=== PATIENT | female | born 1965 | race Caucasian/White ===

== ENCOUNTER → 2016-12-02 | Day surgery (SDC) | payer MEDICARE ==
[~2016-12-02] VITALS: Ht 162.6 cm; Wt 97.5 kg
[~2016-12-02] MED LIST: 0.9% Sodium Chloride 1,000 ML IV PRN; CHOL500011 PO; CITA20TA11 PO; GUAI400T57 PO; MULT1CAP33 PO; Sodium Chloride LOK Flush 10 mL Syringe IV PRN; [UNRECOGNIZED DRUG - CODE] PO; fentaNYL-PF 50 mCg/mL 2 mL Inj IVPUSH PRN
[2016-12-02 13:26] VITALS: BP 115/65; PULSE 68; RESP 16; O2SAT 100
[2016-12-02 15:03] VITALS: BP 95/59; PULSE 68; RESP 16; O2SAT 97
[2016-12-02 15:10] VITALS: BP 88/63; PULSE 75; RESP 16; O2SAT 97
--- NOTE | 2016-12-02 15:18 | ENDO ---
[address] [address] ENDOSCOPY PROCEDURE PATIENT: DOMONIQUE LOREDO : 1965 MR#: [id number] ADMIT: 12/02/2016 JOB ID: [id number] DATE OF SERVICE: 12/02/2016 TYPE OF OPERATION: Esophagogastroduodenoscopy, biopsy. Colonoscopy, biopsy. PREOPERATIVE DIAGNOSIS(ES): Gastroesophageal reflux disease, five positive stools and diarrhea. POSTOPERATIVE DIAGNOSIS(ES): 1. Mild nonerosive gastritis, status post biopsy. 2. Loss of architecture and vascularity and ulcerations seen from the sigmoid colon at 30 cm from the anus to the rectum, status post biopsy. ANESTHESIA: Fentanyl 175 mcg and Versed 9 mg IV administered. COMPLICATION: None. BLOOD LOSS: Minimal. DESCRIPTION OF PROCEDURE: After risks and benefits explained to the patient, informed consent was obtained. After anesthesia administered, an upper endoscope was then inserted into the mouth, intubated into the esophagus, stomach, second portion of duodenum. Mucosa carefully examined. After procedure was done, the scope withdrawn, procedure terminated. Colonoscope was then inserted from the rectum to the terminal ileum. Mucosa carefully examined. Prep of the patient was excellent. After the procedure was done, the scope withdrawn, procedure terminated. FINDINGS: Upon inspection of the esophagus, esophagus was normal without masses, ulcers, or lesions. Z-line located at 34 cm from incisors. Upon entering the stomach, stomach showed mild nonerosive gastritis. No masses, ulcers were seen. Retroflexion was normal. Duodenal bulb, first and second portion normal. Biopsies taken of the antrum, body, and distal esophagus. Upon inspection of the anus, no masses, hemorrhoids, ulcers, fissures that were seen throughout the entire examination. There was some loss of architecture and vascularity with ulcerations that were seen at 30 cm from the anus to the rectum, status post biopsy, suspicious for ulcerative colitis. On intubation terminal ileum appeared normal. This was also biopsied. Retroflexion was not performed. IMPRESSIONS: 1. Mild nonerosive gastritis. 2. Loss of architecture and vascularity with mild ulcerations seen from 30 cm from the anus to the rectum, status post biopsy. RECOMMENDATIONS: 1. Await pathology results. Follow up in GI clinic with Sorin Peñaloza PA-C. 2. Lialda 2.4 g by mouth. 3. Rosalie [place] q.h.s.
[2016-12-02 15:24] VITALS: BP 95/64; PULSE 80; RESP 14; O2SAT 99
[2016-12-02 15:39] VITALS: BP 103/65; PULSE 77; RESP 16; O2SAT 99
--- NOTE | 2016-12-05 12:01 | PATH ---
SURGICAL PATHOLOGY Attending Physician:Timi Virgen MD CASE STATUS: Signed Out PATIENT NAME: DOMONIQUE LOREDO PID: [id number] : 1965 DATE COLLECTED:12/02/2016 00:00 SPECIMEN: 1: Stomach, Antrum, Biopsy 2: Gastric, Biopsy 3: Esophagus, Biopsy 4: Colon, Biopsy 5: Ileum, Biopsy 6: Rectum, Biopsy CLINICAL HISTORY: 1). ANTRUM BIOPSY 2). GASTRIC BODY BIOPSY RULE OUT H PYLORI 3). DISTAL ESOPHAGUS BIOPSY 4). SIGMOID COLON BIOPSY 30 CM 5). TERMINAL ILEUM BIOPSY 6). RECTAL BIOPSY FINAL DIAGNOSIS: 1. Stomach, Antrum, Biopsy: Antral mucosa with mild chronic gastritis. Negative for Helicobacter by immunohistochemistry. Negative for intestinal metaplasia. Negative for dysplasia and malignancy. 2. Stomach, Body, Biopsy: Body-type mucosa with no diagnostic abnormality. Negative for Helicobacter by immunohistochemistry. Negative for intestinal metaplasia. Negative for dysplasia and malignancy. 3. Distal Esophagus, Biopsy: Squamous mucosa with reflux-related changes. Intraepithelial eosinophils are not increased. Negative for dysplasia or malignancy. 4, 6. Sigmoid Colon Biopsy, 30 cm, Rectal Biopsy: Mildly active colitis with cryptitis and focal erosion. See comment. Negative for granulomas, dysplasia and malignancy. 5. Terminal Ileum, Biopsy: Mildly active ileitis. See comment. Negative for granulomas, dysplasia and malignancy. ICD10: R10.9 GROSS DESCRIPTION: The specimen is received in six formalin filled containers labeled with the patient's name. 1). The specimen is labeled "antrum" and consists of a 0.3 x 0.3 x 0.2 CM portion of tissue which is entirely submitted in cassette 1A. 2). The specimen is labeled "gastric body" and consists of 2 portions of tissue which aggregate to 0.2 x 0.2 x 0.2 CM. The specimen is entirely submitted in cassette 2A. 3). The specimen is labeled "distal esophagus" and consists of 2 tiny portions of tissue which aggregate to 0.2 x 0.2 x 0.2 CM. The specimen is entirely submitted in cassette 3A. 4). The specimen is labeled "sigmoid colon 30 CM" and consists of 2 portions of tissue which aggregate to 0.3 x 0.2 x 0.2 CM. The specimen is entirely submitted in cassette 4A. 5). The specimen is labeled "terminal ileum" and consists of 2 portions of tissue which aggregate to 0.2 x 0.2 x 0.2 CM. The specimen is entirely submitted in cassette 5A. 6). The specimen is labeled "rectal" and consists of 2 portions of tissue which aggregate to 0.2 x 0.2 x 0.2 CM. The specimen is entirely submitted in cassette 6A. 12/03/2016DC MICRO DESCRIPTION: 4, 6: The sigmoid colon and rectal biopsies show mild neutrophilic activity without distortion of the crypt architecture. The differential diagnosis includes infection, medication-related mucosal injury, diverticular disease-associated colitis, and idiopathic inflammatory bowel disease. 5. Terminal ileum biopsy: The terminal ileum biopsy shows mild active ileitis without significant distortion of the crypt architecture or pseudopyloric metaplasia. The principal differential diagnosis includes medication-related mucosal injury (i.e., NSAIDs) and Crohn's disease. ICD-9 CODES: CPT CODES: 1: 93038, 31871 2: 53263, 55028 3: 37896 4: 33944 5: 07842 6: 85708 Electronically Signed Out Mary Winn MD [facility] [address], [place] [address] Technical component performed at [facility], [address], [place], [address]
== END | disposition home or self-care (01) ==
LOC: END 00:20
PROVIDERS: ATTEND Internal Medicine Gastroenterology
DX: K52.9 Noninfective gastroenteritis and colitis, unspecified (principal); K21.9 Gastro-esophageal reflux disease without esophagitis; K29.50 Unspecified chronic gastritis without bleeding; F32.9 Major depressive disorder, single episode, unspecified; G35 Multiple sclerosis
CPT/HCPCS: 43239; 45380; 88305; 88342; 99153; G0500; J2250; J3010; J7030